=== PATIENT | female | born 1950 | race Caucasian/White ===

== ENCOUNTER 2017-04-22 19:13 | Emergency (ER) | payer BC ==
[~2017-04-22] VITALS: Ht 170.2 cm; Wt 53.5 kg
[~2017-04-22 19:13] MED LIST: AMPH10TA4 PO; ARIP10TA9 PO; ESCI20TA PO; PRIMADONE PO; PROP80TA4 PO
--- NOTE | 2017-04-22 19:25 | NUR ---
PT AMBULATORY TO ER BED 6. PT BIBSELF C/O PAIN TO RIGHT 2ND TOE. VSS/RESP EVEN UNLABORED/NAD NOTED/SKIN WARM AND DRY/DENIES N-V-D/AOX4. AWAITING MD TEMPLETON.
--- NOTE | 2017-04-22 19:30 | NUR ---
STORE WAREHOUSE ASSOCIATE AT BEDSIDE FOR EVAL.
--- NOTE | 2017-04-22 19:35 | NUR ---
SETUP I&D TRAY AT BEDSIDE PER MD ORDERS.
[2017-04-22] MEDS ORDERED: BUPIVACAINE 0.5 % PF 150 MG/30 ML VIAL ONE (19:37)
--- NOTE | 2017-04-22 19:40 | NUR ---
SUPPORT TECHNICIAN AT BEDSIDE FOR PROCEDURE.
[2017-04-22] MEDS ORDERED: TDAP [DIPH/PERTUSSIS/TET] 0.5 ML VIAL IM ONE ×2 (19:42→20:00)
[2017-04-22] MEDS ORDERED: BUPIVACAINE 0.5 % PF 150 MG/30 ML VIAL IJ ONE (20:00)
--- NOTE | 2017-04-22 21:14 | NUR ---
PT OK TO DISCHARGE PER PORFIRIO WIRE DRAWING MACHINE TENDER. Patient discharged to home in stable condition. Written and verbal after care instructions given. Patient verbalizes understanding of instruction.Patient is awake and alert to self, day, and place. PT ambulatory with a steady gait
[2017-04-22 21:16] VITALS: BP 108/71
== END 2017-04-22 21:17 | disposition home or self-care (01) ==
LOC: ER 19:15
DX: S91.104A Unspecified open wound of right lesser toe(s) without damage to nail, initial encounter (principal); F17.200 Nicotine dependence, unspecified, uncomplicated; F32.9 Major depressive disorder, single episode, unspecified; M20.41 Other hammer toe(s) (acquired), right foot; G89.29 Other chronic pain; Z85.840 Personal history of malignant neoplasm of eye; W20.8XXA Other cause of strike by thrown, projected or falling object, initial encounter; Y93.89 Activity, other specified; Y92.89 Other specified places as the place of occurrence of the external cause; Y99.8 Other external cause status
CPT/HCPCS: 10140; 73660; 90471; 90715; 99284; 99406; A4606; J3490; Z7610

== ENCOUNTER 2017-12-19 16:32 | Inpatient (IN) | payer OTHER, MEDICARE ==
[~2017-12-19] VITALS: Ht 154.9 cm; Wt 47.6 kg
[2017-12-19 17:01] LABS: BASOPHILS # (AUTO) 0.2 /CMM (0.0-0.2); BASOPHILS % (AUTO) 2.4 % (0.0-2.0); EOSINOPHILS % (AUTO) 2.4 % (0.0-6.0); HEMATOCRIT 38 % (33-45); HEMOGLOBIN 12.4 g/dL (11.5-14.8); LYMPHOCYTES # (AUTO) 1.9 /CMM (0.8-4.8); MEAN CORPUSCULAR HEMOGLOBIN 30 PG (26.0-33.0); MEAN CORPUSCULAR HGB CONC 33 g/dl (31.0-36.0); MEAN CORPUSCULAR VOLUME 89 fL (82-100); MONOCYTES # (AUTO) 0.4 /CMM (0.1-1.30); MONOCYTES % (AUTO) 7.1 % (2.0-12.0); NEUTROPHILS # (AUTO) 3.6 /CMM (1.8-8.9); NEUTROPHILS % (AUTO) 58.1 % (43.0-81.0); PLATELET COUNT (AUTO) 202 /CMM (150-450); RDW COEFFICIENT OF VARIATION 14.8 (11.5-15.0); RED BLOOD CELL COUNT(AUTO) 4.21 MIL/uL (4.0-5.2); WHITE BLOOD COUNT (AUTO) 6.3 K/uL (4.3-11.0)
[2017-12-19 17:11] LABS: CALCIUM, SERUM 8.8 mg/dL (8.5-10.1); CARBON DIOXIDE 27 mmol/L (21-32); CHLORIDE 100 mmol/L (98-107); CREATININE 0.7 mg/dL (0.6-1.3); GLUCOSE 106 mg/dL (74-106); POTASSIUM 3.4 mmol/L (3.5-5.1); SODIUM SERUM 138 mmol/L (136-145); UREA NITROGEN, BLOOD 13 mg/dL (7-18)
[2017-12-19 17:17] LABS: ALANINE AMINOTRANSFERASE 18 U/L (12-78); ALBUMIN 3.6 g/dL (3.4-5.0); ALCOHOL, BLOOD < 3 mg/dL (0-0); ALKALINE PHOSPHATASE 80 U/L (46-116); ASPARTATE AMINOTRANSFERASE 24 U/L (15-37); BILIRUBIN,TOTAL 0.2 mg/dL (0.2-1.0); SALICYLATE 5.4 mg/dL (2.8-20.0); TOTAL PROTEIN, SERUM 6.8 g/dL (6.4-8.2)
[2017-12-19 17:18] LABS: ACETAMINOPHEN 0 ug/ml (10-30)
[2017-12-19] MEDS ORDERED: ARIP30TA11 PO (18:48)
[2017-12-19] MEDS ORDERED: PRIM250T8 PO (18:48)
[2017-12-19] MEDS ORDERED: POTASSIUM CHLORIDE 20 MEQ TAB.PRT.SR PO ONE ×2 (19:00→19:34)
--- NOTE | 2017-12-19 19:40 | NUR ---
ASSUME PT CARE. PT IS CALM, RESTING IN BED. HERE FOR MEDICAL CLEARANCE PRIOR TO GEROPSYCH ADMISSION. ON 5150 HOLD FOR DTS. SEEN AND CLEARED FOR GEROPSYCH ADMISSION.
--- NOTE | 2017-12-19 20:09 | NUR ---
REPORT GIVEN TO JANIS GEE. PT AWAITING TRANSFER TO FLOOR.
[2017-12-19 20:30] VITALS: BP 105/71
--- NOTE | 2017-12-19 20:30 | NUR ---
RN NOTE RECEIVED PATIENT FROM ER, AWAKE/ALERT/ORIENTED X3, NO DISTRESS NOTED, NO PAIN OR DISCOMFORT NOTED, VITAL SIGNS STABLE, DX MAJOR DEPRESSION WITH SUICIDE ATTEMPT, PATIENT STATED " I DO NOT HAVE THOUGHTS OR PLAN RIGHT NOW, BUT YOU NEVER NOW", ALL SAFETY MEASURES TAKEN, BELONGING'S LIST DONE AND PLACED IN THE CHART, ALL DOCUMENTATION DONE WITH A HELP OF CHARGE NURSE, WILL CONTINUE TO MONITOR PATIENT Addendum: 12/20/17 at 0536 by PRASHANTH DAVIS RN ADD ALSO PATIENT STATED THAT SHE FELL ON HER LEFT HIP PRIOR TO ADMISSION, NO PAIN AT THIS TIME
[2017-12-19] MEDS: TEMAZEPAM 7.5 MG CAPSULE PO PRN (22:28)
[2017-12-19] MEDS ORDERED: MAG HYDROX/AL HYDROX/SIMETH 30 ML UDC PO PRN (22:30)
[2017-12-19] MEDS ORDERED: MAGNESIUM HYDROXIDE 30 ML UDC PO PRN (22:30)
[2017-12-20] MEDS: ACETAMINOPHEN 325 MG TABLET PO PRN ×3 (05:43→18:45)
[2017-12-20] MEDS: NICOTINE PATCH (14MG) 14 MG PATCH.TD24 TD SCH (05:44)
--- NOTE | 2017-12-20 06:40 | NUR ---
RN NOTE PATIENT COMPLAINED OF LEFT HIP PAIN, AND TAIL BONE PAIN, ABLE TO AMBULATE AND MOVE BOTH LOWER EXTREMITIES, NO BRUISES OR SKIN DISCOLORATION NOTED, TYLENOL PO PROVIDED, ALSO PATIENT HAS FREQUENT EPISODES OF CRYING/ANXIETY, NOTIFIED CARI REYES NP, NEW ORDER OF SITTER 1:1 GIVEN, PER CARI REYES NP DEFER XR OF LEFT HIP AND TAIL BONE FOR NOW AND ENDORSE TO AM SHIFT TO FOLLOW UP, WILL CONTINUE TO MONITOR PATIENT
[2017-12-20 07:33] LABS: ALBUMIN 3.4 g/dL (3.4-5.0); BILIRUBIN,TOTAL 0.3 mg/dL (0.2-1.0); CALCIUM, SERUM 8.9 mg/dL (8.5-10.1); CREATININE 0.8 mg/dL (0.6-1.3); POTASSIUM 4.2 mmol/L (3.5-5.1); TOTAL PROTEIN, SERUM 6.9 g/dL (6.4-8.2)
[2017-12-20 07:41] LABS: CHOLESTEROL 228 mg/dL (<200); HDL CHOLESTEROL 62 mg/dL (40-60); LDL 137 mg/dL (0-99); TRIGLYCERIDES 113 mg/dL (30-150)
[2017-12-20 08:00] VITALS: BP 125/80
[2017-12-20] MEDS: PRIMIDONE 250 MG TABLET PO SCH (09:35)
[2017-12-20] MEDS: LORAZEPAM 0.5 MG TABLET PO PRN ×2 (09:35→23:22)
[2017-12-20] MEDS: ARIPIPRAZOLE 5 MG TABLET PO SCH (13:22)
--- NOTE | 2017-12-20 13:49 | NUR ---
INITIAL DISCHARGE PLAN: Pt currently resides at [facility] located at [address] [place] [address]; ([phone]). Per pt, she would like to return to this facility. ADE will work with the MD and the pt regarding appropriate discharge planning. SW will form a safe and proper discharge.
--- NOTE | 2017-12-20 13:49 | NUR ---
UR Note: ADE called [facility] ([phone]) to receive authorization for the pt. ADE was given the case number which is [id number] and was told that the nurse in charge of the pt is Germaine Mccall ([phone]) who has a fax number: [phone].
--- NOTE | 2017-12-20 13:51 | NUR ---
UR Note: SW called Germaine Mccall ([phone]), LUIS A O manager rn case, and left a message on her voicemail stating that the SW needs authorization for the pt.
[2017-12-20] MEDS: DIVALPROEX SODIUM 125 MG TABLET.DR PO SCH ×2 (14:58→17:13)
[2017-12-20 16:29] VITALS: BP 100/56
[2017-12-20 19:51] VITALS: BP 112/73
[2017-12-20] MEDS ORDERED: ARIPIPRAZOLE 5 MG TABLET PO SCH (22:00)
--- NOTE | 2017-12-21 00:33 | NUR ---
GPS RN NOTE, BRITTANY REYES SENIOR ENGINEERING TECH AT NURSING STATION INFORMED HER THAT THIS PATIENT HAD A X- RAY WITH ON 12/20/17 @ 2051 OF HIP AND PELVIS WITH THE FOLLOWING RESULTS LINEAR LUCENCY THROUGH THE LEFT HEMISPHERE. OVERALL, CONCERNING FOR MINIMALLY DISPLACED FRACTURE. THIS COULD BE CONFIRMED WITH NONCONTRAST CT OF THE PELVIS. BRITTANY REYES SENIOR ENGINEERING TECH ORDERED PHYSICAL THERAPY, NORCO 5-325 PO Q4HR PRN, AND HAVE THE AM SHIFT NURSE FOLLOW UP WITH DAY SHIFT INTEREST. ALL ORDERS NOTED AND CARRIED OUT. WILL CONTINUE TO MONITOR THIS PATIENT.
[2017-12-21] MEDS: HYDROCODONE/APAP 5/325MG 1 EACH TABLET PO PRN ×4 (02:59→17:57)
[2017-12-21] MEDS: NICOTINE PATCH (14MG) 14 MG PATCH.TD24 TD SCH (05:47)
[2017-12-21] MEDS: DIVALPROEX SODIUM 125 MG TABLET.DR PO SCH ×3 (09:17→17:14)
[2017-12-21 09:18] VITALS: BP 110/74
[2017-12-21] MEDS: PRIMIDONE 250 MG TABLET PO SCH (09:18)
[2017-12-21] MEDS: ARIPIPRAZOLE 5 MG TABLET PO SCH (09:18)
--- NOTE | 2017-12-21 09:26 | NUR ---
UR Note: ADE called Germaine Mccall ([phone]), LUIS A O case finisher, and discussed the case. ADE provided the case finisher with the authorization number and then was told to fax over a clinical review. ADE was then informed to call [facility] ([phone]) and inform them that the pt is at the hospital.
--- NOTE | 2017-12-21 09:29 | NUR ---
UR Note: ADE faxed a clinical review to LUIS A Richardson assistant case manager, to the fax number: [phone].
--- NOTE | 2017-12-21 10:09 | NUR ---
UR Note: ADE called [facility] ([phone]) and was redirected to the Authorization department for Behavioral Health ([phone]).
--- NOTE | 2017-12-21 10:11 | NUR ---
UR Note: ADE called the Behavioral Health Authorization department for [employer] ([phone]) and received an authorization number for inpatient stay: [id number]. Pt is authorized until 12/22 with a review due in the morning. ADE was told that it is a single case agreement because of an involuntary hold even though our provider is out of service.
[2017-12-21] MEDS: ACETAMINOPHEN 325 MG TABLET PO PRN (12:41)
[2017-12-21 16:00] VITALS: BP 102/67
[2017-12-21] MEDS: LORAZEPAM 0.5 MG TABLET PO PRN (19:34)
[2017-12-21 20:00] VITALS: BP 109/66
[2017-12-21] MEDS: TEMAZEPAM 7.5 MG CAPSULE PO PRN (22:16)
[2017-12-22] MEDS: HYDROCODONE/APAP 5/325MG 1 EACH TABLET PO PRN ×3 (05:08→17:47)
[2017-12-22] MEDS: NICOTINE PATCH (14MG) 14 MG PATCH.TD24 TD SCH (07:00)
[2017-12-22 08:00] VITALS: BP 107/70
[2017-12-22] MEDS: PRIMIDONE 250 MG TABLET PO SCH (08:23)
[2017-12-22] MEDS: LORAZEPAM 0.5 MG TABLET PO PRN (08:23)
[2017-12-22] MEDS: ARIPIPRAZOLE 5 MG TABLET PO SCH (08:23)
[2017-12-22] MEDS: DIVALPROEX SODIUM 125 MG TABLET.DR PO SCH ×3 (08:23→17:47)
--- NOTE | 2017-12-22 08:25 | NUR ---
RN NOTE:MEDICATED WITH ATIVAN 0.5MG FOR ANXIETY ,WILL CONTINUE TO MONITOR .
--- NOTE | 2017-12-22 09:09 | NUR ---
UR Note: Ingrid ([phone]), machine adjuster leader case trim, called the SW and stated that a clinical review needs to be conducted at 9:30AM live due to this case being out of network. She also stated that she would like to know who the appropriate person is at the hospital to negotiate rates with.
--- NOTE | 2017-12-22 11:39 | NUR ---
RN-CO: DR. Clifford Tam ( ortho) was notified for consult.
--- NOTE | 2017-12-22 12:36 | NUR ---
RN NOTE :PT C/O PAIN LEFT HIP MEDICATED WITH NORCO ,WILL CONTINUE TO MONITOR.
--- NOTE | 2017-12-22 14:00 | NUR ---
RN NOTE:PATIENT EASILY IRRITABLE ,POINTING FINGER AT STAFF AND THREATENING STAFF WHEN HER NEEDS NOT MEET RIGHT AWAY .
--- NOTE | 2017-12-22 14:54 | NUR ---
UR Note: Ingrid ([phone]), rn case management, called the SW and a review was done on the pt. The review determined that the pt is authorized until 12/25/17 with a review due on the following morning if the pt is not discharged.
--- NOTE | 2017-12-22 15:41 | NUR ---
RN-CO: DR MINH REYNA ([facility]) SEEN AND EXAMINED THE PATIENT WITH NO NEW ORDERS. Addendum: 12/22/17 at 1547 by DOROTHY DARLING RN RN-CO: DR MINH OTERO ([facility]).
[2017-12-22 16:00] VITALS: BP 105/67
--- NOTE | 2017-12-22 17:47 | NUR ---
RN NOTE :PT C/O PAIN LEFT HIP MEDICATED WITH NORCO ,WILL CONTINUE TO MONITOR.
--- NOTE | 2017-12-22 17:49 | NUR ---
RN NOTE:PATIENT YELLING AND SCREAMING AT STAFF ,ARGUMENTATIVE THREATENING STAFF ,EASILY AGITATED AND NOT FOLLOWING DIRECTIONS INTRUSIVE ,REQUIRE CONSTANT REDIRECTION.
[2017-12-22 20:00] VITALS: BP 109/63
[2017-12-22] MEDS: TEMAZEPAM 7.5 MG CAPSULE PO PRN (23:02)
[2017-12-23] MEDS: HYDROCODONE/APAP 5/325MG 1 EACH TABLET PO PRN ×3 (00:44→12:28)
[2017-12-23] MEDS: NICOTINE PATCH (14MG) 14 MG PATCH.TD24 TD SCH (06:04)
[2017-12-23 07:27] LABS: ALBUMIN 2.7 g/dL (3.4-5.0); BILIRUBIN,TOTAL 0.2 mg/dL (0.2-1.0); CALCIUM, SERUM 8.9 mg/dL (8.5-10.1); CREATININE 0.6 mg/dL (0.6-1.3); POTASSIUM 4.5 mmol/L (3.5-5.1)
[2017-12-23 07:56] LABS: BASOPHILS # (AUTO) 0.1 /CMM (0.0-0.2); BASOPHILS % (AUTO) 1.1 % (0.0-2.0); EOSINOPHILS % (AUTO) 4.7 % (0.0-6.0); HEMATOCRIT 36 % (33-45); HEMOGLOBIN 11.6 g/dL (11.5-14.8); LYMPHOCYTES # (AUTO) 1.4 /CMM (0.8-4.8); LYMPHOCYTES % (AUTO) 28.2 % (20.0-44.0); MEAN CORPUSCULAR HEMOGLOBIN 30 PG (26.0-33.0); MEAN CORPUSCULAR HGB CONC 32 g/dl (31.0-36.0); MEAN CORPUSCULAR VOLUME 92 fL (82-100); MONOCYTES # (AUTO) 0.5 /CMM (0.1-1.30); MONOCYTES % (AUTO) 9.6 % (2.0-12.0); NEUTROPHILS # (AUTO) 2.8 /CMM (1.8-8.9); NEUTROPHILS % (AUTO) 56.4 % (43.0-81.0); PLATELET COUNT (AUTO) 235 /CMM (150-450); RDW COEFFICIENT OF VARIATION 16.3 (11.5-15.0); RED BLOOD CELL COUNT(AUTO) 3.93 MIL/uL (4.0-5.2)
[2017-12-23 08:00] VITALS: BP 117/79
[2017-12-23] MEDS: ARIPIPRAZOLE 5 MG TABLET PO SCH (08:17)
[2017-12-23] MEDS: PRIMIDONE 250 MG TABLET PO SCH (08:18)
[2017-12-23] MEDS: DIVALPROEX SODIUM 125 MG TABLET.DR PO SCH ×2 (08:18→12:20)
--- NOTE | 2017-12-23 11:46 | NUR ---
DR. MCNEIL GAVE AN ORDER TP D/C HOLD AND D/C TO [facility] AND TO FOLLOW UP WITH PSYCH AND MEDICAL DOCTORS. CALLED [facility] AND SPOKE TO PORCELAIN SLUSHER BLACK AND SAID THEY ARE ACCEPTING HER BACK. PT. AGREED TO SEND PT. VIA A TAXI AND PORCELAIN SLUSHER IS AWARE.
--- NOTE | 2017-12-23 13:40 | NUR ---
GPS/RN CONFIRMED BED AVAILABILITY WITH BLACK AT [facility] located at [address] [place] [address]; ([phone]). PRESCRIPTIONS FROM DR MCNEIL PROVIDED. PT DECLINED THE PRESCRIPTIONS FROM MEDICAL SHE HAS HER OWN SUPPLY OF HOME MEDS AVAILABLE. EXIT CARE INSTRUCTIONS PROVIDED, SKIN CLEAR ON D/C AND PROPERTY RETURNED. NO SI OR HI AT THE TIME OF D/C REPORTED. PT HAS HER OWN PSYCHIATRIST AND PCP AND WILL CONTACT THE MD'S FOR FOLLOW UP. PT PROVIDED WITH TAXI VOUCHER TO GET TO [facility] located at [address] [place] [address];
--- NOTE | 2017-12-25 09:23 | NUR ---
Discharge Note: ADE called the pt ([phone]) on Monday12/25/17 due to the fact that the pt was discharged over the weekend on Monday12/23/17. ADE was not able to reach the pt and therefore left a voicemail with three substance abuse referrals as well as one therapist referral from her insurance company which would allow the pt to have five free sessions. The referrals are listed below: Substance Abuse Referrals: [facility] [address] [place] [address] Tel. [facility] [address] [place] Provider Mental Health Treatment Tele-dermatology HIV Services Telemedicine Services [facility] [address] [place] [address] [facility] [address] [place] [address] Therapist Referral: Jes Schultz PSYD [address] [place] [address] ext [phone] Addendum: 12/25/17 at 1025 by ROXI BOOKER ADE called the pt ([phone]) back and provided her with two smoking cessation referrals as well: [employer] 800-LUNGUSA [employer] [phone]
--- NOTE | 2017-12-25 09:44 | NUR ---
UR Note: ADE called Ingrid ([phone]), continuous pillowcase cutter, and left a message on her voicemail stating that the pt was discharged on Monday, December 23 back to her [facility]. Pt was provided with substance abuse referrals as well as a therapist referral. Pt was transported by the general counselor of the transitional house and the psychiatrist cleared her for discharge.
--- NOTE | 2017-12-25 12:28 | NUR ---
UR Note: ADE called Germaine Mccall ([phone]), LUIS A O medical case manager, and informed her that the pt was discharged back to [facility] and that she was provided with substance abuse referrals as well as therapist referral.
== END 2017-12-23 13:45 | disposition home or self-care (01) | DRG 885 ==
LOC: ER 16:38 → GPS 19:36
PROVIDERS: ADMIT Psychiatry & Neurology Psychosomatic Medicine; ATTEND Internal Medicine
DX: F31.9 Bipolar disorder, unspecified (principal); F23 Brief psychotic disorder; R45.851 Suicidal ideations; E87.6 Hypokalemia; Z59.0 Homelessness; Z91.5 Personal history of self-harm; F41.9 Anxiety disorder, unspecified; S30.0XXA Contusion of lower back and pelvis, initial encounter; W19.XXXA Unspecified fall, initial encounter; Y93.9 Activity, unspecified; Y92.9 Unspecified place or not applicable; R93.8 Abnormal findings on diagnostic imaging of other specified body structures
CPT/HCPCS: 36415; 72220-TC; 73502; 73700-TC; 80048-TC; 80053-TC; 80061-TC; 80076-TC; 80164-TC; 83735-TC; 85025-TC; 87081-TC; A4606; G0480; Z7610

== ENCOUNTER → 2018-07-18 | Emergency (ER) | payer OTHER, MEDICARE ==
[~2018-07-18] VITALS: Ht 170.2 cm; Wt 52.2 kg
[~2018-07-18] MED LIST changes: -ARIP10TA9 PO; -ESCI20TA PO; +PRIM250T8 PO; -PRIMADONE PO; -PROP80TA4 PO
[2018-07-18 19:43] VITALS: BP 117/71
--- NOTE | 2018-07-18 19:49 | NUR ---
PT STATING "DONT FEEL LIKE WAITING. GOING TO THE [facility]RG[facility]"
== END | disposition left against medical advice (07) ==
LOC: ER 18:44
DX: Z53.21 Procedure and treatment not carried out due to patient leaving prior to being seen by health care provider (principal); G89.29 Other chronic pain; M54.9 Dorsalgia, unspecified; F32.9 Major depressive disorder, single episode, unspecified; Z98.890 Other specified postprocedural states

== ENCOUNTER 2018-11-25 18:21 | Emergency (ER) | payer MEDICARE, OTHER ==
[~2018-11-25] VITALS: Ht 167.6 cm; Wt 59.9 kg
[2018-11-25 18:55] VITALS: BP 117/60
[2018-11-25] MEDS ORDERED: ARIPIPRAZOLE 2 MG TABLET ONE (19:23)
[2018-11-25] MEDS ORDERED: oxyCODONE/APAP (5/325 MG) 1 UDTAB TABLET ONE (19:23)
[2018-11-25] MEDS ORDERED: SUMATRIPTAN SUCCINATE 6 MG/0.5 ML VIAL SQ ONE ×2 (19:23→19:30)
[2018-11-25] MEDS ORDERED: oxyCODONE/APAP (5/325 MG) 1 UDTAB TABLET PO ONE (19:30)
[2018-11-25] MEDS ORDERED: ARIPIPRAZOLE 5 MG TABLET PO ONE ×2 (19:30)
--- NOTE | 2018-11-25 19:48 | NUR ---
PT BIBS MED REFILL FOR SUMATRIPTAN, ABILIFY, LEXAPRO, AND OXYCODONE
== END 2018-11-25 20:11 | disposition home or self-care (01) ==
LOC: ER 18:29
DX: G89.29 Other chronic pain (principal); G43.909 Migraine, unspecified, not intractable, without status migrainosus; M54.2 Cervicalgia; M54.9 Dorsalgia, unspecified; F32.9 Major depressive disorder, single episode, unspecified; F17.200 Nicotine dependence, unspecified, uncomplicated; Z98.890 Other specified postprocedural states; Z85.840 Personal history of malignant neoplasm of eye
CPT/HCPCS: 96372; 99283; J3030

== ENCOUNTER 2018-11-30 14:40 | Emergency (ER) | payer MEDICARE, OTHER ==
[~2018-11-30] VITALS: Ht 170.2 cm; Wt 68.0 kg
--- NOTE | 2018-11-30 15:18 | NUR ---
CAME IN FOR LOWER BACK PAIN SINCE INJURY ON 12/15/2017. TO ED REQUESTING DOSE OF OXYCODONE. ALSO C/O EPIGASTRIC PAIN "I'VE BEEN TAKING 12-15 ADVIL TO MANAGE THE PAIN". TO ER BED 10, HOOKED TO MONITOR, CHANGED TO GOWN, PROVIDED W WARM BLANKET, AWAITING MD TEMPLETON
--- NOTE | 2018-11-30 15:40 | NUR ---
DR SMITH AT BEDSIDE
[2018-11-30] MEDS ORDERED: FAMOTIDINE/PF INJ 20 MG/2 ML VIAL IV ONE ×2 (15:55→16:00)
[2018-11-30] MEDS ORDERED: MORPHINE SULFATE INJ 2 MG/ML DISP.SYRIN ONE (15:55)
[2018-11-30] MEDS ORDERED: CYCLOBENZAPRINE 10 MG TABLET ONE (15:55)
[2018-11-30] MEDS ORDERED: MAG HYDROX/AL HYDROX/SIMETH 30 ML UDC ONE (15:55)
[2018-11-30] MEDS ORDERED: MORPHINE SULFATE INJ 4 MG/ML DISP.SYRIN ONE (15:55)
[2018-11-30] MEDS ORDERED: LIDOCAINE VISCOUS 2% UD 15 ML UDC ONE (15:55)
[2018-11-30] MEDS ORDERED: LIDOCAINE VISCOUS 2% UD 15 ML UDC MM ONE (16:00)
[2018-11-30] MEDS ORDERED: MAG HYDROX/AL HYDROX/SIMETH 30 ML UDC PO ONE (16:00)
[2018-11-30] MEDS ORDERED: MORPHINE SULFATE INJ 2 MG/ML DISP.SYRIN IV ONE (16:00)
[2018-11-30] MEDS ORDERED: CYCLOBENZAPRINE 10 MG TABLET PO ONE (16:00)
[2018-11-30 16:12] LABS: BASOPHILS # (AUTO) 0.1 /CMM (0.0-0.2); BASOPHILS % (AUTO) 2.5 % (0.0-2.0); EOSINOPHILS % (AUTO) 2.5 % (0.0-6.0); HEMATOCRIT 42 % (33-45); HEMOGLOBIN 14.1 g/dL (11.5-14.8); LYMPHOCYTES # (AUTO) 2.1 /CMM (0.8-4.8); LYMPHOCYTES % (AUTO) 46.6 % (20.0-44.0); MEAN CORPUSCULAR HGB CONC 33 g/dl (31.0-36.0); MEAN CORPUSCULAR VOLUME 91 fL (82-100); MONOCYTES # (AUTO) 0.4 /CMM (0.1-1.30); MONOCYTES % (AUTO) 8.9 % (2.0-12.0); NEUTROPHILS # (AUTO) 1.8 /CMM (1.8-8.9); NEUTROPHILS % (AUTO) 39.5 % (43.0-81.0); PLATELET COUNT (AUTO) 215 /CMM (150-450); RED BLOOD CELL COUNT(AUTO) 4.66 MIL/uL (4.0-5.2); WHITE BLOOD COUNT (AUTO) 4.6 K/uL (4.3-11.0)
[2018-11-30 16:17] LABS: CALCIUM, SERUM 9.7 mg/dL (8.5-10.1); CREATININE 0.9 mg/dL (0.6-1.3); POTASSIUM 4.7 mmol/L (3.5-5.1)
--- NOTE | 2018-11-30 16:19 | NUR ---
WHEELED OUT VIA WHEELCHAIR FOR MRI
[2018-11-30 16:31] LABS: ALBUMIN 4.1 g/dL (3.4-5.0); BILIRUBIN,DIRECT 0.1 mg/dL (0.0-0.2); BILIRUBIN,TOTAL 0.3 mg/dL (0.2-1.0); TOTAL PROTEIN, SERUM 7.5 g/dL (6.4-8.2)
--- NOTE | 2018-11-30 16:50 | NUR ---
PATIENT BACK FROM MRI
--- NOTE | 2018-11-30 19:00 | NUR ---
IV removed. Catheter intact and site benign. Pressure and 4x4 applied to site. No bleeding noted.Patient discharged to home in stable condition. Written and verbal after care instructions given. Patient verbalizes understanding of instruction.
[2018-11-30 19:01] VITALS: BP 122/80
== END 2018-11-30 19:04 | disposition home or self-care (01) ==
LOC: ER 14:41
DX: M54.16 Radiculopathy, lumbar region (principal); R10.13 Epigastric pain; F32.9 Major depressive disorder, single episode, unspecified; G89.29 Other chronic pain; F17.200 Nicotine dependence, unspecified, uncomplicated; Z98.890 Other specified postprocedural states; Z60.2 Problems related to living alone; Z79.899 Other long term (current) drug therapy; Z85.828 Personal history of other malignant neoplasm of skin
CPT/HCPCS: 36415; 72148; 80048; 80076; 83690; 85025; 96374; 96375; 99284; J2270 ×2; J3490